=== PATIENT | female | born 1975 | race Asian ===

== ENCOUNTER 2016-12-07 18:49 | Emergency (ER) | payer OTHER ==
[~2016-12-07] VITALS: Ht 157.5 cm; Wt 44.0 kg
[2016-12-07] MEDS ORDERED: Ketorolac 60mg Inj IM ONE (19:00)
--- NOTE | 2016-12-07 19:06 | Emergency Room Report ---
History of Present Illness General Chief Complaint: Pain Source: Patient Present Illness HPI Is a 41-year-old female with no significant past medical history. She's been packing to move. She was sitting down to eat and had someone. Also said she had pain in her right foot. Worse with movement. Denies any fever chills denies any nausea vomiting. No other injury. Pain is severe 10 out of 10. Worse with palpation worse with movement. Allergies: Coded Allergies: No Known Allergies (Unverified , 12/07/16) Patient History Past Medical History: see triage record, old chart reviewed Past Surgical History: none Pertinent Family History: none Social History: Denies: smoking Last Menstrual Period: 11/21/2016 Now: No Immunizations: other Reviewed Nursing Documentation: PMH: Agreed, PSxH: Agreed Nursing Documentation-PM Past Medical History: No Stated History Review of Systems Eye: Denies: blurred vision, eye pain ENT: Denies: ear pain, nose congestion, throat swelling Respiratory: Denies: cough, shortness of breath Cardiovascular: Denies: chest pain, palpitations Gastrointestinal: Denies: abdominal pain, diarrhea, nausea, vomiting Musculoskeletal: Reports: muscle pain, Denies: back pain, joint pain Skin: Denies: rash Neurological: Denies: headache, numbness Endocrine: Denies: increased thirst, increased urine Hematologic/Lymphatic: Denies: easy bruising All Other Systems: negative except mentioned in HPI Physical Exam Vital Signs Date Time Temp Pulse Resp B/P Pulse Ox O2 Delivery O2 Flow Rate FiO2 12/07/16 18:57 98.2 66 14 163/81 96 Room Air vitals normal except hypertension Sp02 EP Interpretation: reviewed, normal General Appearance: well appearing, no apparent distress, alert Head: normocephalic, atraumatic Eyes: bilateral eye EOMI, bilateral eye PERRL ENT: hearing grossly normal, normal pharynx Neck: full range of motion, supple, no meningismus Respiratory: chest non-tender, lungs clear, normal breath sounds Cardiovascular #1: regular rate, rhythm, no murmur Gastrointestinal: normal bowel sounds, non tender, no mass, no organomegaly, no bruit, non-distended Musculoskeletal: back normal, other - Right foot: No deformity. Tenderness over the dorsum of the foot by the ankle. Worse with movement of the foot. Sensation normal. Dorsalis pedis pulse 2+. Psychiatric: mood/affect normal Skin: warm/dry Medical Decision Making Diagnostic Impression: Primary Impression: Right foot sprain Qualified Codes: S93.601A - Unspecified sprain of right foot, initial encounter ER Course Patient presents with right foot pain. Distal fracture dislocation. She has good pulses and warmth. I see no evidence of arterial occlusion or venous occlusion. Unlikely to be DVT. No evidence of infection. We'll discharge home. This may be spasm. Other X-Ray Diagnostic Results # of Views/Limited Vs Complete: 3 View Interpretation: no fractures, no dislocation, no soft tissue swelling Indication: Pain Impression: No acute disease Date Electronically Signed: Dec 07, 2016 Time Electronically Signed: 19:44 Interpreting ER Physician: Devonte Mcneal MD Last Vital Signs Date Time Temp Pulse Resp B/P Pulse Ox O2 Delivery O2 Flow Rate FiO2 12/07/16 18:57 98.2 66 14 163/81 96 Room Air Status: improved Disposition: HOME, SELF-CARE Condition: Stable Scripts Ibuprofen* (MOTRIN*) 600 Mg Tablet 600 MG ORAL THREE TIMES A DAY, #30 TAB 0 Refills Prov: DEVONTE MCNEAL M.D. 12/07/16 Hydrocodone/Acetaminophen 5-325* (HYDROCODONE/ACETAMINOPHEN 5-325*) 1 Each Tablet 1 TAB ORAL Q6H Y for For Pain, #20 TAB 0 Refills Prov: DEVONTE MCNEAL M.D. 12/07/16 Patient Instructions: PAIN, Uncertain Cause (Acute) Additional Instructions: Followup with your Dr. in 2-3 days. Elevate your foot. Ice pack to the area. Return if symptom worsen. DEVONTE MCNEAL M.D. Dec 07, 2016 19:06
[2016-12-07] MEDS ORDERED: HYDROCODON-ACE1 EA15 ORAL (19:44)
[2016-12-07] MEDS ORDERED: IBUPROFEN600 MG ORAL (19:44)
[2016-12-07] MEDS ORDERED: Norco 5mg/325mg tab ORAL ONE (19:45)
[2016-12-07 19:55] VITALS: BP 132/79
--- NOTE | 2016-12-08 10:10 | Diagnostic Imaging Report ---
Indication: Right foot pain Technique: XRAY FOOT MIN 3V RIGHT Comparison: None Findings: There is no acute fracture or dislocation. Accessory navicular is noted. Bone mineralization is normal. Soft tissues are grossly unremarkable. There is mild hallux valgus. Impression: No acute osseous abnormality.
== END 2016-12-07 19:55 | disposition home or self-care (01) ==
LOC: EMR 19:12
DX: S93.601A Unspecified sprain of right foot, initial encounter (principal); X50.9XXA Other and unspecified overexertion or strenuous movements or postures, initial encounter; X50.0XXA Overexertion from strenuous movement or load, initial encounter; Y92.009 Unspecified place in unspecified non-institutional (private) residence as the place of occurrence of the external cause
CPT/HCPCS: 96372; 99284